=== PATIENT | male | born 1955 | race Two or more races ===

== ENCOUNTER 2022-07-01 04:35 | Inpatient (IN) | payer OTHER ==
[2022-07-01] VITALS (31 sets, daily range): BP systolic 41–130; BP diastolic 20–92
[~2022-07-01] VITALS: Ht 182.9 cm; Wt 86.3 kg
[2022-07-01] MEDS ORDERED: FUROSEMIDE 40 MG/4 ML VIAL IV ONE (05:00)
[2022-07-01 06:23] LABS: Basophils # (auto) 0 10 ^3/uL (0-0.2); Basophils % (auto) 0.3 % (0.0-2.0); Eosinophils # (auto) 0 10 ^3/uL (0-0.8); Eosinophils % (auto) 0.3 % (0.0-7.0); Hematocrit 49.5 % (41.0-53.0); Lymphocytes # (auto) 0.7 10 ^3/uL (0.4-5.4); Lymphocytes % (auto) 9.1 % (10.0-50.0); Mean Corpuscular Hemoglobin 31.7 pg (28.0-32.0); Mean Corpuscular Hgb Conc. 32.2 g/dL (32.0-36.0); Mean Corpuscular Volume 98.5 fL (80.0-100.0); Monocytes # (auto) 0.5 10 ^3/uL (0-1.3); Monocytes % (auto) 6.4 % (0.0-12.0); Neutrophils # (auto) 6.5 10 ^3/uL (1.6-8.6); Neutrophils % (auto) 83.9 % (37.0-80.0); Nucleated Red Blood Cells % 0.1 %; Red Blood Cells 5.03 10^6/uL (4.5-5.90); Red Cell Distribution Width 17.4 % (11.8-14.3); White Blood Cell 7.8 10^3/uL (4.4-10.8)
[2022-07-01] MEDS ORDERED: DOBUTamine 1000MCG/ML 250 ML IV ONE (07:30)
[2022-07-01] MEDS ORDERED: DOPamine 1600MCG/ML D5W 250 ML IV ONE ×2 (07:45→23:48)
[2022-07-01 07:50] LABS: Albumin 3.3 g/dL (3.4-5.0); Calcium 8.7 mg/dL (8.5-10.1); Magnesium 2.6 mg/dL (1.6-2.6); Potassium 4.4 mmol/L (3.5-5.1)
[2022-07-01 07:53] LABS: BUN/Creatinine Ratio 20.3; Bilirubin, Total 1.8 mg/dL (0.2-1.0); Total Protein 6.3 g/dL (6.4-8.2)
[2022-07-01] MEDS ORDERED: MORPHINE SULFATE INJ 2 MG/ml SYRG IV PRN (08:30)
[2022-07-01] MEDS ORDERED: NITROGLYCERIN 0.4 MG SL TAB SL PRN (08:30)
[2022-07-01] MEDS: cefTRIAXone 1GM/50ML D5W 50 ML IV SCH (10:09)
[2022-07-01] MEDS ORDERED: SPIRONOLACTONE 25 MG TAB PO ONE (11:30)
[2022-07-01] MEDS ORDERED: AMIODARONE 450mg/250ml AE 250 ML IV SCH ×2 (11:45→17:45)
[2022-07-01] MEDS ORDERED: AMIODARONE HCL 150 MG in D5W 5% 100 ML IV ONE (11:45)
[2022-07-01] MEDS: BUMETANIDE 2.5mg/10ml (0.25 mg/ml) INJ IV SCH ×2 (11:54→17:49)
[2022-07-01 12:09] LABS: Urine Bacteria NONE SEEN /hpf (None Seen); Urine Blood Negative /uL (Negative); Urine Hyaline Cast MANY /lpf (0 - 2); Urine Mucus FEW (None Seen); Urine Specific Gravity 1.016 (1.001-1.035); Urine WBC 65 /hpf (0 - 3)
[2022-07-01 12:10] LABS: Protein, Urine 102.6 mg/dL (0.0-11.9)
[2022-07-01] MEDS ORDERED: APIX2.5T PO (12:34)
[2022-07-01] MEDS ORDERED: AMIO200T33 PO (12:34)
[2022-07-01] MEDS ORDERED: CLOP75TA28 PO (12:34)
[2022-07-01] MEDS ORDERED: VALS40TA2 PO (12:34)
[2022-07-01] MEDS ORDERED: POTA10TA32 PO (12:34)
[2022-07-01] MEDS ORDERED: FURO1TAB31 PO (12:34)
[2022-07-01] MEDS ORDERED: METO25TA5 PO (12:34)
[2022-07-01] MEDS ORDERED: ATOR40TA52 PO (12:34)
[2022-07-01] MEDS ORDERED: ALBUTEROL SULF 2.5 MG/0.5ML(0.5%) NEB SOLN ONE (15:17)
[2022-07-01] MEDS: methylPREDNISolone SOD SUCC 40 MG/ML VL IV SCH (18:05)
[2022-07-01] MEDS: BUDESONIDE (INHALATION) 0.5 MG/2 ML NEB NEB SCH (18:43)
[2022-07-01] MEDS: ALBUTEROL SULF 2.5 MG/0.5ML(0.5%) NEB SOLN NEB PRN ×2 (18:43→22:12)
[2022-07-01] MEDS: IPRATROPIUM BROM 0.5 MG/2.5ML INH SOL NEB PRN ×2 (18:43→22:12)
[2022-07-01] MEDS ORDERED: diphenhdrAMINE HCL 50 MG/1 ML VL IV ONE (18:45)
[2022-07-01] MEDS: DOPamine 1600MCG/ML D5W 250 ML IV SCH (19:00)
[2022-07-01] MEDS: NOREPINEPHRINE 8 MG/250ML KIT 250 ML IV SCH (21:25)
[2022-07-01] MEDS ORDERED: NOREPINEPHRINE 8 MG/250ML KIT 250 ML IV ONE (21:34)
[2022-07-01] MEDS ORDERED: SUCCINYLCHOLINE CHLORIDE 20 MG/ML 10ML VIAL IV ONE (21:35)
[2022-07-01] MEDS ORDERED: ETOMIDATE (2MG/ML) 20ML VIAL IV ONE (21:35)
[2022-07-01] MEDS ORDERED: SODIUM BICARBONATE 8.4% INJ 50ML SYRINGE ONE (21:48)
[2022-07-01] MEDS ORDERED: SODIUM BICARBONATE 8.4 % INJ 50ML VIAL IV ONE (22:00)
[2022-07-02] VITALS (96 sets, daily range): BP systolic 74–125; BP diastolic 37–88
[2022-07-02] MEDS ORDERED: diphenhdrAMINE HCL 25 MG CAP PO ONE (00:15)
[2022-07-02] MEDS: SODIUM CHLORIDE 0.9% 1,000 ML IV SCH ×2 (00:38→02:27)
[2022-07-02] MEDS ORDERED: SODIUM BICARBONATE 8.4 % INJ 50ML VIAL IV ONE ×4 (01:00→08:00)
[2022-07-02] MEDS: methylPREDNISolone SOD SUCC 40 MG/ML VL IV SCH ×3 (02:22→17:50)
[2022-07-02 04:44] LABS: Lactic Acid w/Reflex 5.2 mmol/L (0.4-2.0)
[2022-07-02] MEDS: BUMETANIDE 2.5mg/10ml (0.25 mg/ml) INJ IV SCH ×2 (05:06→17:50)
[2022-07-02] MEDS ORDERED: ALBUMIN 5% 0 ML IV ONE (05:42)
[2022-07-02] MEDS: BUDESONIDE (INHALATION) 0.5 MG/2 ML NEB NEB SCH ×2 (06:11→19:43)
[2022-07-02] MEDS: IPRATROPIUM BROM 0.5 MG/2.5ML INH SOL NEB PRN ×2 (06:11→19:42)
[2022-07-02] MEDS: ALBUTEROL SULF 2.5 MG/0.5ML(0.5%) NEB SOLN NEB PRN ×2 (06:11→19:42)
[2022-07-02] MEDS ORDERED: DOBUTamine 1000MCG/ML 250 ML IV SCH ×2 (06:45→07:00)
[2022-07-02] MEDS ORDERED: metOLazone 5 MG TAB PO ONE (07:00)
[2022-07-02] MEDS ORDERED: MILRINONE 20MG/100ML 100 ML IV SCH (07:45)
[2022-07-02] MEDS: MILRINONE 20MG/100ML 100 ML IV SCH (08:50)
[2022-07-02] MEDS: cefTRIAXone 1GM/50ML D5W 50 ML IV SCH (10:34)
[2022-07-02 11:51] LABS: Basophils # (auto) 0 10 ^3/uL (0-0.2); Basophils % (auto) 0.2 % (0.0-2.0); Eosinophils # (auto) 0 10 ^3/uL (0-0.8); Hematocrit 42.3 % (41.0-53.0); Hemoglobin 13.7 g/dL (13.5-17.5); Lymphocytes # (auto) 0.5 10 ^3/uL (0.4-5.4); Lymphocytes % (auto) 3.9 % (10.0-50.0); Mean Corpuscular Hemoglobin 30.9 pg (28.0-32.0); Mean Corpuscular Hgb Conc. 32.5 g/dL (32.0-36.0); Mean Corpuscular Volume 95.2 fL (80.0-100.0); Monocytes # (auto) 0.3 10 ^3/uL (0-1.3); Monocytes % (auto) 2.4 % (0.0-12.0); Neutrophils # (auto) 11.2 10 ^3/uL (1.6-8.6); Neutrophils % (auto) 93.5 % (37.0-80.0); Nucleated Red Blood Cells % 0.1 %; Red Blood Cells 4.44 10^6/uL (4.5-5.90); Red Cell Distribution Width 16.4 % (11.8-14.3)
[2022-07-02 12:13] LABS: Albumin 2.7 g/dL (3.4-5.0); Calcium 7.6 mg/dL (8.5-10.1); Potassium 4.3 mmol/L (3.5-5.1)
[2022-07-02 12:33] LABS: BUN/Creatinine Ratio 22.9; Bilirubin, Total 2.7 mg/dL (0.2-1.0); Total Protein 5.1 g/dL (6.4-8.2)
[2022-07-02] MEDS: CALCIUM ACETATE 667 MG CAP PO SCH ×2 (14:18→17:50)
[2022-07-02] MEDS: MIDODRINE HCL 10 MG TAB PO SCH ×2 (14:18→22:10)
[2022-07-02] MEDS: NOREPINEPHRINE 8 MG/250ML KIT 250 ML IV SCH (14:53)
[2022-07-02] MEDS: DOPamine 1600MCG/ML D5W 250 ML IV SCH (15:46)
[2022-07-02] MEDS ORDERED: PANTOPRAZOLE 40 MG TAB PO ONE (23:15)
[2022-07-03] VITALS (91 sets, daily range): BP systolic 79–141; BP diastolic 46–93
[2022-07-03] MEDS: NOREPINEPHRINE 8 MG/250ML KIT 250 ML IV SCH ×3 (00:25→16:31)
[2022-07-03] MEDS: MILRINONE 20MG/100ML 100 ML IV SCH ×2 (00:27→19:25)
[2022-07-03] MEDS: methylPREDNISolone SOD SUCC 40 MG/ML VL IV SCH ×3 (02:04→18:29)
[2022-07-03 03:58] LABS: Basophils # (auto) 0.1 10 ^3/uL (0-0.2); Basophils % (auto) 0.4 % (0.0-2.0); Eosinophils # (auto) 0 10 ^3/uL (0-0.8); Hematocrit 48.6 % (41.0-53.0); Hemoglobin 16.1 g/dL (13.5-17.5); Lymphocytes # (auto) 0.4 10 ^3/uL (0.4-5.4); Lymphocytes % (auto) 2.5 % (10.0-50.0); Mean Corpuscular Hemoglobin 31.1 pg (28.0-32.0); Mean Corpuscular Hgb Conc. 33.2 g/dL (32.0-36.0); Mean Corpuscular Volume 93.7 fL (80.0-100.0); Monocytes # (auto) 0.3 10 ^3/uL (0-1.3); Neutrophils % (auto) 95.1 % (37.0-80.0); Nucleated Red Blood Cells % 0.1 %; Red Blood Cells 5.18 10^6/uL (4.5-5.90); Red Cell Distribution Width 16.6 % (11.8-14.3); White Blood Cell 15.7 10^3/uL (4.4-10.8)
[2022-07-03 04:16] LABS: Albumin 2.9 g/dL (3.4-5.0); Calcium 7.9 mg/dL (8.5-10.1); Potassium 3.7 mmol/L (3.5-5.1)
[2022-07-03 04:33] LABS: BUN/Creatinine Ratio 31.3; Bilirubin, Total 3.1 mg/dL (0.2-1.0); Total Protein 5.6 g/dL (6.4-8.2)
[2022-07-03] MEDS: BUMETANIDE 2.5mg/10ml (0.25 mg/ml) INJ IV SCH ×2 (05:13→18:29)
[2022-07-03] MEDS: MIDODRINE HCL 10 MG TAB PO SCH ×3 (05:22→22:38)
[2022-07-03] MEDS: DOPamine 1600MCG/ML D5W 250 ML IV SCH ×2 (07:17→22:48)
[2022-07-03] MEDS: CALCIUM ACETATE 667 MG CAP PO SCH ×3 (08:19→18:29)
[2022-07-03] MEDS: PANTOPRAZOLE 40 MG TAB PO SCH (10:07)
[2022-07-03] MEDS: cefTRIAXone 1GM/50ML D5W 50 ML IV SCH (10:07)
[2022-07-03] MEDS ORDERED: AMIODARONE HCL 200 MG TAB PO ONE (11:00)
[2022-07-03] MEDS: BUDESONIDE (INHALATION) 0.5 MG/2 ML NEB NEB SCH ×2 (11:17→19:03)
[2022-07-03] MEDS: ALBUTEROL SULF 2.5 MG/0.5ML(0.5%) NEB SOLN NEB PRN ×2 (11:17→19:03)
[2022-07-03] MEDS: IPRATROPIUM BROM 0.5 MG/2.5ML INH SOL NEB PRN ×2 (11:20→19:03)
[2022-07-03] MEDS: PIPERACILLIN-TAZOB 2.25GM 50 ML IV SCH ×2 (12:41→22:39)
[2022-07-03] MEDS: APIXABAN 2.5 MG TAB PO SCH (22:39)
[2022-07-03] MEDS: AMIODARONE HCL 200 MG TAB PO SCH (22:39)
[2022-07-04] VITALS (93 sets, daily range): BP systolic 73–140; BP diastolic 36–97
[2022-07-04 04:32] LABS: Basophils # (auto) 0 10 ^3/uL (0-0.2); Basophils % (auto) 0.2 % (0.0-2.0); Eosinophils # (auto) 0.1 10 ^3/uL (0-0.8); Eosinophils % (auto) 0.5 % (0.0-7.0); Hematocrit 48.7 % (41.0-53.0); Hemoglobin 16.3 g/dL (13.5-17.5); Lymphocytes # (auto) 0.3 10 ^3/uL (0.4-5.4); Lymphocytes % (auto) 2.2 % (10.0-50.0); Mean Corpuscular Hemoglobin 31.4 pg (28.0-32.0); Mean Corpuscular Hgb Conc. 33.6 g/dL (32.0-36.0); Mean Corpuscular Volume 93.3 fL (80.0-100.0); Monocytes # (auto) 0.5 10 ^3/uL (0-1.3); Monocytes % (auto) 3.4 % (0.0-12.0); Neutrophils # (auto) 13.7 10 ^3/uL (1.6-8.6); Neutrophils % (auto) 93.7 % (37.0-80.0); Nucleated Red Blood Cells % 0.3 %; Red Blood Cells 5.21 10^6/uL (4.5-5.90); Red Cell Distribution Width 16.5 % (11.8-14.3); White Blood Cell 14.6 10^3/uL (4.4-10.8)
[2022-07-04 05:38] LABS: Potassium 3.1 mmol/L (3.5-5.1)
[2022-07-04 05:52] LABS: Albumin 2.7 g/dL (3.4-5.0); BUN/Creatinine Ratio 38.9; Bilirubin, Total 3.6 mg/dL (0.2-1.0); Calcium 8.4 mg/dL (8.5-10.1); Total Protein 5.5 g/dL (6.4-8.2)
[2022-07-04] MEDS: ALBUTEROL SULF 2.5 MG/0.5ML(0.5%) NEB SOLN NEB PRN ×2 (06:52→20:14)
[2022-07-04] MEDS: BUDESONIDE (INHALATION) 0.5 MG/2 ML NEB NEB SCH ×2 (06:52→20:14)
[2022-07-04] MEDS: IPRATROPIUM BROM 0.5 MG/2.5ML INH SOL NEB PRN ×2 (06:52→20:14)
[2022-07-04] MEDS: CALCIUM ACETATE 667 MG CAP PO SCH ×3 (08:43→18:39)
[2022-07-04] MEDS: BUMETANIDE 2.5mg/10ml (0.25 mg/ml) INJ IV SCH ×2 (08:58→18:39)
[2022-07-04] MEDS: MIDODRINE HCL 10 MG TAB PO SCH ×3 (08:58→21:30)
[2022-07-04] MEDS: methylPREDNISolone SOD SUCC 40 MG/ML VL IV SCH ×2 (09:45→18:39)
[2022-07-04] MEDS ORDERED: POTASSIUM CHL 20 Meq TABLET PO ONE (09:45)
[2022-07-04] MEDS: AMIODARONE HCL 200 MG TAB PO SCH ×2 (10:10→21:30)
[2022-07-04] MEDS: APIXABAN 2.5 MG TAB PO SCH (10:10)
[2022-07-04] MEDS: PANTOPRAZOLE 40 MG TAB PO SCH (10:10)
[2022-07-04] MEDS ORDERED: POTASSIUM EFFERVESENT TAB 25 MEQ PO ONE (12:00)
[2022-07-04] MEDS ORDERED: PIPERACILLIN-TAZOB 3.375GM 100 ML IV SCH (12:00)
[2022-07-04] MEDS: NOREPINEPHRINE 8 MG/250ML KIT 250 ML IV SCH (13:35)
[2022-07-04] MEDS: DOPamine 1600MCG/ML D5W 250 ML IV SCH (14:19)
[2022-07-04] MEDS ORDERED: SPIRONOLACTONE 25 MG TAB PO ONE (14:30)
[2022-07-04] MEDS: MILRINONE 20MG/100ML 100 ML IV SCH (15:15)
[2022-07-04 19:17] LABS: INR 1.78 (0.9-1.15)
[2022-07-05] VITALS (93 sets, daily range): BP systolic 71–174; BP diastolic 34–150
[2022-07-05] MEDS: methylPREDNISolone SOD SUCC 40 MG/ML VL IV SCH ×3 (02:22→18:51)
[2022-07-05 04:10] LABS: Basophils # (auto) 0 10 ^3/uL (0-0.2); Basophils % (auto) 0.1 % (0.0-2.0); Eosinophils # (auto) 0 10 ^3/uL (0-0.8); Eosinophils % (auto) 0.1 % (0.0-7.0); Hematocrit 48.9 % (41.0-53.0); Hemoglobin 16.3 g/dL (13.5-17.5); Lymphocytes # (auto) 0.3 10 ^3/uL (0.4-5.4); Lymphocytes % (auto) 2.8 % (10.0-50.0); Mean Corpuscular Hemoglobin 30.9 pg (28.0-32.0); Mean Corpuscular Hgb Conc. 33.3 g/dL (32.0-36.0); Mean Corpuscular Volume 92.8 fL (80.0-100.0); Monocytes # (auto) 0.6 10 ^3/uL (0-1.3); Monocytes % (auto) 5.2 % (0.0-12.0); Neutrophils # (auto) 11.2 10 ^3/uL (1.6-8.6); Neutrophils % (auto) 91.8 % (37.0-80.0); Nucleated Red Blood Cells % 0.1 %; Red Blood Cells 5.27 10^6/uL (4.5-5.90); Red Cell Distribution Width 16.7 % (11.8-14.3); White Blood Cell 12.2 10^3/uL (4.4-10.8)
[2022-07-05 04:27] LABS: Albumin 2.8 g/dL (3.4-5.0); Calcium 9.2 mg/dL (8.5-10.1); Potassium 3.2 mmol/L (3.5-5.1)
[2022-07-05 04:39] LABS: BUN/Creatinine Ratio 40.2; Bilirubin, Total 3.8 mg/dL (0.2-1.0); Total Protein 5.6 g/dL (6.4-8.2)
[2022-07-05] MEDS: DOPamine 1600MCG/ML D5W 250 ML IV SCH ×2 (05:50→21:21)
[2022-07-05] MEDS: BUMETANIDE 2.5mg/10ml (0.25 mg/ml) INJ IV SCH (05:55)
[2022-07-05] MEDS: MIDODRINE HCL 10 MG TAB PO SCH ×3 (05:55→20:43)
[2022-07-05] MEDS: MILRINONE 20MG/100ML 100 ML IV SCH (09:01)
[2022-07-05] MEDS: CALCIUM ACETATE 667 MG CAP PO SCH (09:05)
[2022-07-05] MEDS: IPRATROPIUM BROM 0.5 MG/2.5ML INH SOL NEB PRN ×2 (09:55→19:43)
[2022-07-05] MEDS: BUDESONIDE (INHALATION) 0.5 MG/2 ML NEB NEB SCH ×2 (09:55→19:43)
[2022-07-05] MEDS ORDERED: POTASSIUM CHLORIDE 40 MEQ, LIDOCAINE 1% (LOCAL ANESTH.) 4 ML in SODIUM CHL 0.9% 250 ML IV ONE (10:15)
[2022-07-05] MEDS: PANTOPRAZOLE 40 MG TAB PO SCH (10:45)
[2022-07-05] MEDS: AMIODARONE HCL 200 MG TAB PO SCH ×2 (10:45→20:44)
[2022-07-05] MEDS: ALBUTEROL SULF 2.5 MG/0.5ML(0.5%) NEB SOLN NEB PRN (19:43)
[2022-07-06] VITALS (94 sets, daily range): BP systolic 80–126; BP diastolic 51–93
[2022-07-06] MEDS: methylPREDNISolone SOD SUCC 40 MG/ML VL IV SCH ×3 (02:09→17:25)
[2022-07-06] MEDS: MILRINONE 20MG/100ML 100 ML IV SCH ×2 (03:35→21:45)
[2022-07-06] MEDS: NOREPINEPHRINE 8 MG/250ML KIT 250 ML IV SCH ×2 (04:54→22:00)
[2022-07-06] MEDS: MIDODRINE HCL 10 MG TAB PO SCH ×2 (05:51→17:25)
[2022-07-06 07:19] LABS: Basophils # (auto) 0 10 ^3/uL (0-0.2); Basophils % (auto) 0.1 % (0.0-2.0); Eosinophils # (auto) 0 10 ^3/uL (0-0.8); Hematocrit 47.1 % (41.0-53.0); Lymphocytes # (auto) 0.2 10 ^3/uL (0.4-5.4); Lymphocytes % (auto) 1.6 % (10.0-50.0); Mean Corpuscular Hemoglobin 31.7 pg (28.0-32.0); Mean Corpuscular Volume 93.2 fL (80.0-100.0); Monocytes # (auto) 0.8 10 ^3/uL (0-1.3); Monocytes % (auto) 6.7 % (0.0-12.0); Neutrophils # (auto) 10.5 10 ^3/uL (1.6-8.6); Neutrophils % (auto) 91.6 % (37.0-80.0); Nucleated Red Blood Cells % 0.2 %; Red Blood Cells 5.05 10^6/uL (4.5-5.90); Red Cell Distribution Width 16.7 % (11.8-14.3); White Blood Cell 11.4 10^3/uL (4.4-10.8)
[2022-07-06 07:29] LABS: Albumin 2.7 g/dL (3.4-5.0); BUN/Creatinine Ratio 43.7; Calcium 8.5 mg/dL (8.5-10.1); Potassium 3.4 mmol/L (3.5-5.1)
[2022-07-06 07:55] LABS: Bilirubin, Total 3.4 mg/dL (0.2-1.0); Phosphorus 3.4 mg/dL (2.5-4.90)
[2022-07-06] MEDS ORDERED: POTASSIUM EFFERVESENT TAB 25 MEQ PO ONE (08:45)
[2022-07-06] MEDS: AMIODARONE HCL 200 MG TAB PO SCH ×2 (10:18→22:00)
[2022-07-06] MEDS: PANTOPRAZOLE 40 MG TAB PO SCH (10:18)
[2022-07-06] MEDS: ALBUTEROL SULF 2.5 MG/0.5ML(0.5%) NEB SOLN NEB PRN ×2 (11:10→21:27)
[2022-07-06] MEDS: IPRATROPIUM BROM 0.5 MG/2.5ML INH SOL NEB PRN ×2 (11:10→21:27)
[2022-07-06] MEDS: BUDESONIDE (INHALATION) 0.5 MG/2 ML NEB NEB SCH ×2 (11:10→21:27)
[2022-07-06] MEDS: DOPamine 1600MCG/ML D5W 250 ML IV SCH (12:52)
[2022-07-06] MEDS ORDERED: BUMETANIDE 2.5mg/10ml (0.25 mg/ml) INJ IV ONE (13:45)
[2022-07-06] MEDS ORDERED: acetaZOLAMIDE SODIUM 500 MG VL IV ONE (14:00)
[2022-07-06] MEDS: APIXABAN 5 MG TAB PO SCH (22:00)
[2022-07-07] VITALS (65 sets, daily range): BP systolic 84–132; BP diastolic 56–101
[2022-07-07] MEDS: methylPREDNISolone SOD SUCC 40 MG/ML VL IV SCH ×3 (02:00→17:34)
[2022-07-07] MEDS: DOPamine 1600MCG/ML D5W 250 ML IV SCH ×2 (04:23→19:54)
[2022-07-07] MEDS: MIDODRINE HCL 10 MG TAB PO SCH ×3 (05:55→17:34)
[2022-07-07 07:25] LABS: Basophils # (auto) 0 10 ^3/uL (0-0.2); Eosinophils # (auto) 0 10 ^3/uL (0-0.8); Hemoglobin 15.3 g/dL (13.5-17.5); White Blood Cell 9.3 10^3/uL (4.4-10.8)
[2022-07-07 07:28] LABS: Basophils % (auto) 0.3 % (0.0-2.0); Hematocrit 46.2 % (41.0-53.0); Lymphocytes # (auto) 0.2 10 ^3/uL (0.4-5.4); Lymphocytes % (auto) 1.8 % (10.0-50.0); Mean Corpuscular Hemoglobin 31.2 pg (28.0-32.0); Mean Corpuscular Hgb Conc. 33.1 g/dL (32.0-36.0); Mean Corpuscular Volume 94.1 fL (80.0-100.0); Monocytes # (auto) 0.9 10 ^3/uL (0-1.3); Monocytes % (auto) 9.2 % (0.0-12.0); Neutrophils # (auto) 8.2 10 ^3/uL (1.6-8.6); Neutrophils % (auto) 88.7 % (37.0-80.0); Nucleated Red Blood Cells % 0.1 %; Red Blood Cells 4.92 10^6/uL (4.5-5.90); Red Cell Distribution Width 16.4 % (11.8-14.3)
[2022-07-07 07:50] LABS: Albumin 2.6 g/dL (3.4-5.0); BUN/Creatinine Ratio 38.5; Calcium 8.6 mg/dL (8.5-10.1); Total Protein 5.4 g/dL (6.4-8.2)
[2022-07-07 08:17] LABS: Potassium 2.9 mmol/L (3.5-5.1)
[2022-07-07] MEDS ORDERED: POTASSIUM CHL 20 Meq TABLET PO ONE (08:30)
[2022-07-07] MEDS ORDERED: POTASSIUM EFFERVESENT TAB 25 MEQ PO ONE (09:45)
[2022-07-07] MEDS: POTASSIUM CHL 20MEQ/100ML 100 ML IV SCH ×2 (09:45→11:45)
[2022-07-07] MEDS: AMIODARONE HCL 200 MG TAB PO SCH ×2 (10:10→21:30)
[2022-07-07] MEDS: APIXABAN 5 MG TAB PO SCH (10:10)
[2022-07-07] MEDS: ALBUTEROL SULF 2.5 MG/0.5ML(0.5%) NEB SOLN NEB PRN (14:14)
[2022-07-07] MEDS: BUDESONIDE (INHALATION) 0.5 MG/2 ML NEB NEB SCH ×2 (14:14→18:24)
[2022-07-07] MEDS: MILRINONE 20MG/100ML 100 ML IV SCH (15:55)
[2022-07-07 21:32] LABS: Eosinophils # (auto) 0 10 ^3/uL (0-0.8); Hemoglobin 14.6 g/dL (13.5-17.5); Lymphocytes # (auto) 0.1 10 ^3/uL (0.4-5.4); Lymphocytes % (auto) 1.3 % (10.0-50.0); Monocytes # (auto) 0.7 10 ^3/uL (0-1.3); Nucleated Red Blood Cells % 0.1 %
[2022-07-07 21:33] LABS: Basophils # (auto) 0 10 ^3/uL (0-0.2); Basophils % (auto) 0.2 % (0.0-2.0); Eosinophils % (auto) 0.1 % (0.0-7.0); Hematocrit 44.7 % (41.0-53.0); Mean Corpuscular Hemoglobin 30.6 pg (28.0-32.0); Mean Corpuscular Hgb Conc. 32.7 g/dL (32.0-36.0); Mean Corpuscular Volume 93.6 fL (80.0-100.0); Monocytes % (auto) 8.7 % (0.0-12.0); Neutrophils # (auto) 7.2 10 ^3/uL (1.6-8.6); Neutrophils % (auto) 89.7 % (37.0-80.0); Red Blood Cells 4.77 10^6/uL (4.5-5.90)
[2022-07-07 21:46] LABS: INR 1.19 (0.9-1.15); Partial Thromboplastin Time 28.9 sec (24.6-33.4)
[2022-07-07] MEDS ORDERED: APIXABAN 5 MG TAB PO SCH (22:00)
[2022-07-07] MEDS: NOREPINEPHRINE 8 MG/250ML KIT 250 ML IV SCH (22:00)
[2022-07-08] VITALS (21 sets, daily range): BP systolic 86–110; BP diastolic 57–75
[2022-07-08] MEDS: methylPREDNISolone SOD SUCC 40 MG/ML VL IV SCH ×3 (01:06→17:05)
[2022-07-08 03:49] LABS: Basophils # (auto) 0 10 ^3/uL (0-0.2); Eosinophils # (auto) 0 10 ^3/uL (0-0.8); Lymphocytes # (auto) 0.1 10 ^3/uL (0.4-5.4); Monocytes # (auto) 0.7 10 ^3/uL (0-1.3); Neutrophils # (auto) 7.2 10 ^3/uL (1.6-8.6); White Blood Cell 8.1 10^3/uL (4.4-10.8)
[2022-07-08 03:51] LABS: Basophils % (auto) 0.4 % (0.0-2.0); Hematocrit 45.9 % (41.0-53.0); Hemoglobin 15.3 g/dL (13.5-17.5); Lymphocytes % (auto) 1.6 % (10.0-50.0); Mean Corpuscular Hemoglobin 31.3 pg (28.0-32.0); Mean Corpuscular Hgb Conc. 33.3 g/dL (32.0-36.0); Monocytes % (auto) 8.9 % (0.0-12.0); Neutrophils % (auto) 89.1 % (37.0-80.0); Red Blood Cells 4.88 10^6/uL (4.5-5.90); Red Cell Distribution Width 16.7 % (11.8-14.3)
[2022-07-08 04:04] LABS: Albumin 2.8 g/dL (3.4-5.0); BUN/Creatinine Ratio 33.9; Calcium 8.8 mg/dL (8.5-10.1); Potassium 3.7 mmol/L (3.5-5.1)
[2022-07-08 04:07] LABS: Total Protein 5.8 g/dL (6.4-8.2)
[2022-07-08] MEDS: MIDODRINE HCL 10 MG TAB PO SCH ×3 (05:30→17:05)
[2022-07-08] MEDS: ALBUTEROL SULF 2.5 MG/0.5ML(0.5%) NEB SOLN NEB PRN ×3 (05:31→18:38)
[2022-07-08] MEDS: IPRATROPIUM BROM 0.5 MG/2.5ML INH SOL NEB PRN ×3 (05:32→18:38)
[2022-07-08] MEDS: DOPamine 1600MCG/ML D5W 250 ML IV SCH (07:41)
[2022-07-08] MEDS: MILRINONE 20MG/100ML 100 ML IV SCH (07:41)
[2022-07-08] MEDS: NOREPINEPHRINE 8 MG/250ML KIT 250 ML IV SCH (07:42)
[2022-07-08] MEDS: BUDESONIDE (INHALATION) 0.5 MG/2 ML NEB NEB SCH ×2 (07:46→18:38)
[2022-07-08] MEDS: AMIODARONE HCL 200 MG TAB PO SCH ×2 (08:40→21:39)
[2022-07-08] MEDS ORDERED: MID10T GT (11:00)
[2022-07-08] MEDS: CEFEPIME 2 GM in SODIUM CHL 0.9% 50 ML IV SCH ×2 (14:45→21:38)
[2022-07-08] MEDS: IPRATROPIUM BROM 0.5 MG/2.5ML INH SOL NEB SCH (22:32)
[2022-07-08] MEDS: ALBUTEROL SULF 2.5 MG/0.5ML(0.5%) NEB SOLN NEB SCH (22:32)
[2022-07-09] MEDS: methylPREDNISolone SOD SUCC 40 MG/ML VL IV SCH ×2 (02:23→10:23)
[2022-07-09 05:00] VITALS: BP 104/61
[2022-07-09] MEDS: CEFEPIME 2 GM in SODIUM CHL 0.9% 50 ML IV SCH ×2 (05:46→14:00)
[2022-07-09 06:24] LABS: Basophils # (auto) 0.1 10 ^3/uL (0-0.2); Eosinophils # (auto) 0 10 ^3/uL (0-0.8); Lymphocytes # (auto) 0.1 10 ^3/uL (0.4-5.4); Mean Corpuscular Volume 93.2 fL (80.0-100.0); Monocytes # (auto) 0.4 10 ^3/uL (0-1.3); Monocytes % (auto) 4.5 % (0.0-12.0)
[2022-07-09 06:27] LABS: Basophils % (auto) 0.8 % (0.0-2.0); Lymphocytes % (auto) 1.3 % (10.0-50.0); Mean Corpuscular Hemoglobin 31.1 pg (28.0-32.0); Mean Corpuscular Hgb Conc. 33.3 g/dL (32.0-36.0); Neutrophils # (auto) 7.5 10 ^3/uL (1.6-8.6); Neutrophils % (auto) 93.4 % (37.0-80.0); Red Blood Cells 4.51 10^6/uL (4.5-5.90); Red Cell Distribution Width 16.7 % (11.8-14.3); White Blood Cell 8.1 10^3/uL (4.4-10.8)
[2022-07-09] MEDS: BUDESONIDE (INHALATION) 0.5 MG/2 ML NEB NEB SCH (06:42)
[2022-07-09] MEDS: ALBUTEROL SULF 2.5 MG/0.5ML(0.5%) NEB SOLN NEB SCH ×3 (06:42→14:19)
[2022-07-09] MEDS: IPRATROPIUM BROM 0.5 MG/2.5ML INH SOL NEB SCH ×3 (06:43→14:19)
[2022-07-09 06:46] LABS: Albumin 2.5 g/dL (3.4-5.0); Calcium 8.6 mg/dL (8.5-10.1); Potassium 3.2 mmol/L (3.5-5.1)
[2022-07-09 06:49] LABS: Bilirubin, Total 2.7 mg/dL (0.2-1.0); Total Protein 5.4 g/dL (6.4-8.2)
[2022-07-09] MEDS: MIDODRINE HCL 10 MG TAB PO SCH ×2 (07:01→12:00)
[2022-07-09] MEDS ORDERED: FUROSEMIDE 40 MG/4 ML VIAL IV ONE (09:45)
[2022-07-09] MEDS: AMIODARONE HCL 200 MG TAB PO SCH (10:23)
[2022-07-09 12:49] VITALS: BP 101/68
[2022-07-09 13:00] VITALS: BP 103/67
== END 2022-07-09 16:48 | disposition home or self-care (01) | DRG 291 ==
LOC: ER 04:35 → EDBD 04:35 → TELE 08:27 → ICU WEST 10:35 → TELE-WESTW 07-08 23:37
PROVIDERS: ADMIT Internal Medicine; ATTEND Internal Medicine
DX: I13.0 Hypertensive heart and chronic kidney disease with heart failure and stage 1 through stage 4 chronic kidney disease, or unspecified chronic kidney disease (principal); I50.23 Acute on chronic systolic (congestive) heart failure; J96.01 Acute respiratory failure with hypoxia; N17.0 Acute kidney failure with tubular necrosis; K72.00 Acute and subacute hepatic failure without coma; R57.0 Cardiogenic shock; I48.92 Unspecified atrial flutter; E87.1 Hypo-osmolality and hyponatremia; E87.2 Acidosis; Z20.822 Contact with and (suspected) exposure to COVID-19; N18.9 Chronic kidney disease, unspecified; I73.9 Peripheral vascular disease, unspecified; I35.0 Nonrheumatic aortic (valve) stenosis; I42.0 Dilated cardiomyopathy; E78.5 Hyperlipidemia, unspecified; E83.39 Other disorders of phosphorus metabolism; E87.6 Hypokalemia; F10.20 Alcohol dependence, uncomplicated; J43.9 Emphysema, unspecified; I48.91 Unspecified atrial fibrillation; I87.8 Other specified disorders of veins; Z86.711 Personal history of pulmonary embolism; Z72.0 Tobacco use
CPT/HCPCS: 36415; 36600; 71045; 76775; 80053; 81001; 82270; 82306; 82570; 82805; 83605; 83735; 83880; 83970; 84100; 84132; 84156; 84300; 84484; 85025; 85610; 85730; 87070; 87077; 87081; 87186; 87205; 87493; 93005; 93306; 93925; 93970; 94640; 94660; 96365; 96366; 97110; 97116; 97163; 97530; 99291; G0378; J0330; J0696; J2001; J2543; J7060